=== PATIENT | female | born 1960 | race Caucasian/White ===

== ENCOUNTER 2024-08-07 06:19 | Day surgery (SDC) | payer OTHER, SELFPAY ==
[2024-07-22 11:08] LABS: Hematocrit 38.8 % (37.0-47.0); Hemoglobin 12.6 g/dL (12.0-16.0); Mean Corp Hgb Conc. 32.5 g/dL (33.0-37.0); Mean Corpuscular Volume 95.3 fL (81.0-99.0); Mean Platelet Volume 9.4 fL (7.4-10.4); Platelet Count 175 10^3/uL (130-400); Red Blood Cell Count 4.07 10^6/uL (4.20-5.40); Red Cell Dist. Width 13.5 % (11.5-14.5); White Blood Cell Count 6.4 10^3/uL (4.8-10.8)
[2024-07-22 11:14] LABS: ALT (SGPT) 14 U/L (0-35); AST (SGOT) 26 U/L (14-36); Albumin 4.6 g/dl (3.5-5.0); Alkaline Phosphatase 54 U/L (38-126); Blood Urea Nitrogen 20 mg/dl (7-17); Calcium 9.3 mg/dl (8.4-10.2); Carbon Dioxide 31 mmol/L (22-30); Chloride 100 mmol/L (98-107); Glucose 82 mg/dl (70-99); Potassium 4.9 mmol/L (3.5-5.1); Sodium 141 mmol/L (135-145); Total Bilirubin 0.4 mg/dl (0.2-1.3); Total Protein 7.3 g/dl (6.3-8.2); eGFR > 60.00
[2024-07-22 12:10] VITALS: BMI 19.3
[2024-07-31 15:58] VITALS: BMI 19.3
[2024-08-07] VITALS (15 sets, daily range): BP systolic 108–132; BP diastolic 63–78; BMI 19.3
[2024-08-07] MEDS: LYRICA 150 MG PO (08:45)
[2024-08-07] MEDS: CELEBREX 200 MG PO (08:45)
[2024-08-07] MEDS: NORMOSOL-R/PLASMALYTE-A 1000 IV (08:45)
[2024-08-07] MEDS: SKELAXIN 800 MG PO (08:46)
[2024-08-07] MEDS: TYLENOL 1000 MG PO ×2 (08:46→15:27)
[2024-08-07] MEDS: SUBLIMAZE 50 MCG IV ×2 (12:04→12:17)
[2024-08-07] MEDS: ZOFRAN 4 MG IV (12:42)
[2024-08-07] MEDS: COMPAZINE 5 MG IV (15:20)
== END 2024-08-07 15:48 | disposition home or self-care (01) ==
LOC: SDS 06:19
PROVIDERS: ATTENDING PHYSICIAN Orthopaedic Surgery Orthopaedic Surgery of the Spine; FAMILY PHYSICIAN Internal Medicine
PROC: 0RG40A0 Fusion of Cervicothoracic Vertebral Joint with Interbody Fusion Device, Anterior Approach, Anterior Column, Open Approach (ICD-10-PCS; 2024-08-07)
PROC: 0RB50ZZ Excision of Cervicothoracic Vertebral Disc, Open Approach (ICD-10-PCS; 2024-08-07)
DX: M48.03 Spinal stenosis, cervicothoracic region (principal); M47.813 Spondylosis without myelopathy or radiculopathy, cervicothoracic region
CPT/HCPCS: 22551; 22853; 36415; 72020; 80053; 85027; 87070; C1713